=== PATIENT | female | born 1945 | race Caucasian/White ===

== ENCOUNTER → 2017-01-09 | Outpatient (CLI) | payer OTHER ==
[2014-03-11 09:00] VITALS: BP 129/68
[~2017-01-09] MED LIST: AMIO100T4 PO; AMIO200T2 PO; AMIO400T4 PO; AMLO2.5T PO; CARV25TA PO; DABI150C PO; ESCITALOPRAM OX20 MG PO; FURO-69 PO; LIPITOR80 MG PO; PANT40TA3 PO; POTA10TA5 PO
--- NOTE | 2017-01-09 13:38 | RAD ---
Venous Doppler of the left lower extremity Indication: Painful lateral left knee. 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 Technique: Grayscale, color Doppler and spectral waveform ultrasound images of the left lower extremity veins. Comparison: None Findings: The interrogated left lower extremity veins are compressible and demonstrate normal respiratory variation with a response to augmentation. There is a hypoechoic lesion within lateral knee at the site of pain approximately measuring 4.0 x 0.4 x 3.3 cm. Impression: 1. No DVT of the left lower extremity interrogated veins. 2. Hypoechoic lesion within the left lateral aspect of the knee at the site of pain may represent a bursa. Clinically correlate.
--- NOTE | 2017-01-09 16:07 | RAD ---
Left knee, 3 views, 01/09/2017: History: Fall, knee pain No fracture or dislocation is identified. No joint effusion is evident. Arterial calcifications are noted. Left tibia and fibula, 2 views, 01/09/2017: No fracture or bony abnormality is detected. There is mild subcutaneous edema. Surgical clips are present in the proximal soft tissues medially. IMPRESSION: No acute bony abnormality is detected.
== END | disposition home or self-care (01) ==
LOC: US 12:28
PROVIDERS: ATTEND Nurse Practitioner Family
DX: D68.2 Hereditary deficiency of other clotting factors (principal); M25.562 Pain in left knee; M25.462 Effusion, left knee; M79.605 Pain in left leg; R60.9 Edema, unspecified; Z91.81 History of falling
CPT/HCPCS: 73562; 73590; 93971

== ENCOUNTER → 2020-10-15 | Outpatient (CLI) | payer MEDICARE ==
[2014-03-11 09:00] VITALS: BP 129/68
[~2020-10-15] MED LIST changes: -AMIO200T2 PO; +AMIO200T6 PO; -AMIO400T4 PO; +AMIO400T5 PO; -AMLO2.5T PO; +AMLO2.5T5 PO
--- NOTE | 2020-10-15 10:13 | RAD ---
XR CHEST 2V CLINICAL INDICATIONS: dyspnea: COMPARISON: June 08, 2013. Findings: A new small focus of atelectasis or infiltrate is seen within the right midlung zone. Persi stent interstitial infiltrate is seen within the lateral right lung base which is stable. There is an increase in platelike atelectasis of the left lung base with a new finding of mild elevation of the left hemidiaphragm. No pleural effusion or pneumothorax is seen. Sternotomy is evident. Mild cardiome charlene is again evident. Pulmonary vasculature and mediastinum are unremarkable. The osseous structures appear intact. IMPRESSION: Increase in platelike atelectasis of the left lung base with mild elevation of the left h emidiaphragm. New small nodular lung infiltrate or atelectasis within the right midlung zone. Stable interstitial lung infiltrate within the lateral right lung base. Stable cardiomegaly. Electronically signed by: John Santos MD (10/15/2020 10:10 AM) [id number]
[2020-10-15 14:28] LABS: BASO # 0.1 x10^3/uL (0.0-0.2); BASO % 1 % (0-3); EOS # 0.1 x10^3/uL (0.0-0.7); EOS % 2 % (0-3); HEMATOCRIT 38.7 % (36.0-47.0); HEMOGLOBIN 12.5 g/dL (12.0-15.5); LYMPH # 1.4 x10^3/uL (1.0-4.8); LYMPH % 22 % (24-48); MEAN CORPUSCULAR HEMOGLOBIN 30 pg (25-35); MEAN CORPUSCULAR HGB CONC 32 g/dL (31-37); MEAN CORPUSCULAR VOLUME 94 fL (79-100); MONO # 0.5 x10^3/uL (0.0-1.1); MONO % 8 % (0-9); NEUT # 4.2 x10^3uL (1.8-7.7); NEUT % 67 % (31-73); PLATELET COUNT 246 x10^3/uL (140-400); RED BLOOD COUNT 4.13 x10^6/uL (3.50-5.40); RED CELL DISTRIBUTION WIDTH 15.5 % (11.5-14.5); WHITE BLOOD COUNT 6.3 x10^3/uL (4.0-11.0)
[2020-10-15 14:45] LABS: ALBUMIN 3.8 g/dL (3.4-5.0); ALBUMIN/GLOBULIN RATIO 0.9 (1.0-1.7); CREATININE 1.5 mg/dL (0.6-1.0); GFR 33.7; POTASSIUM 4.7 mmol/L (3.5-5.1); TOTAL BILIRUBIN 0.5 mg/dL (0.2-1.0)
[2020-10-16 17:57] LABS: THYROID STIM HORMONE (TSH) 1.1 uIU/mL (0.358-3.740)
== END ==
LOC: LAB 09:26
PROVIDERS: ATTEND Nurse Practitioner
DX: R91.8 Other nonspecific abnormal finding of lung field (principal); I51.7 Cardiomegaly; R06.09 Other forms of dyspnea; E78.5 Hyperlipidemia, unspecified; I48.19 Other persistent atrial fibrillation
CPT/HCPCS: 36415; 71046; 80053; 80061; 83880; 84443; 85025

== ENCOUNTER → 2021-04-20 | Outpatient (CLI) | payer MEDICARE ==
[2014-03-11 09:00] VITALS: BP 129/68
[~2021-04-20] MED LIST changes: +AMIO200T54 PO; -AMIO200T6 PO; +POTA-112 PO; -POTA10TA5 PO
--- NOTE | 2021-04-21 08:43 | RAD ---
EXAM: PA and Lateral Views of the Chest DATE: 04/20/2021 4:52 PM INDICATION: copd, short of breath and cough for 1 week COMPARISON: 10/15/2020 FINDINGS: The heart is not enlarged. 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 Mediastinal and hilar contours are normal. Peripheral right lung base and left lung base airspace opacities likely consolidative process such as pneumonia. No pleural effusion or pneumothorax. IMPRESSION: Bilateral lung base airspace opacities likely consolidative process such as pneumonia. Compared to is mildly progressed. Electronically signed by: Hunter Mcdowell MD (04/21/2021 8:41 AM) [id number]
== END ==
LOC: RAD 16:48
PROVIDERS: ATTEND Family Medicine
DX: R91.8 Other nonspecific abnormal finding of lung field (principal); J44.1 Chronic obstructive pulmonary disease with (acute) exacerbation; R06.02 Shortness of breath; R05.9 Cough, unspecified
CPT/HCPCS: 71046

== ENCOUNTER → 2021-06-06 | Outpatient (CLI) | payer MEDICARE ==
[2014-03-11 09:00] VITALS: BP 129/68
--- NOTE | 2021-06-06 17:06 | RAD ---
Chest, PA and Lateral: Technique: PA and lateral views of the chest were obtained. History: Cough, pneumonia. Comparison: 04/20/2021. Findings: Mild cardiomegaly.. Mild linear prominent appearing bilateral interstitial lung markings likely inte rstitial infiltrates.. The pleural margins are clear. Moderate degenerative changes thoracic spine. Impression: Mild linear prominent appearing bilateral interstitial lung markings likely interstitial infiltrates. Electronically signed by: Jaime Bird MD (06/06/2021 5:04 PM) [id number]
== END ==
LOC: RAD 12:29
PROVIDERS: ATTEND Nurse Practitioner
DX: J18.9 Pneumonia, unspecified organism (principal); I51.7 Cardiomegaly
CPT/HCPCS: 71046